=== PATIENT | male | born 1980 | race African-American/Black ===

== ENCOUNTER 2016-06-15 11:41 | Emergency (ER) | payer MEDICAID, OTHER ==
--- NOTE | 2016-06-15 12:46 | EDDOCDS ---
Physician Documentation [facility] Name: Ricardo Hannon Age: 35 yrs Sex: Male : 1980 Arrival Date: 06/15/2016 Time: 11:41 Bed TR8 Private MD: NO PRIMARY PHYSICIAN, . Disposition: 06/15/16 12:33 Discharged to Home/Self Care. Impression: Asthma, Mild intermittent asthma, uncomplicated. - Condition is Stable. - Discharge Instructions: Asthma, Adult, How to Use an Inhaler. - Prescriptions for spacer - as directed 1 tube by NEBULIZATION route as needed 1 spacer as needed; 1 tube. Albuterol Sulfate 1.25 mg/3 mL Inhalation Solution for Nebulization - inhale 1 ampule by NEBULIZATION route 4 times per day As needed; 1 box. - Medication Reconciliation, Local Pharmacy Hours form. - [facility] up[facility]; When: Call to arrange an appointment; Reason: Continuance of care. - Problem is an ongoing problem. - Symptoms are unchanged. Historical: - Allergies: no known allergies; - Home Meds: 1. Albuterol Inhl 2 puffs as needed (Last dose: 06/15/2016 09:00) - PMHx: Asthma; - PSHx: none; - Social history: Smoking status: Patient uses tobacco products, light tobacco smoker. No barriers to communication noted, The patient speaks fluent Setswana. - Family history: Not pertinent. - : The pt / caregiver states he / she is not on anticoagulants. Home medication list is obtained from the patient. - Exposure Risk Screening:: None identified. Vital Signs: 06/15 11:43 BP 112 / 75; Pulse 99; Resp 18 S; Temp 98.1(O); Pulse Ox 100% on R/A; Weight 56.7 kg / dd6 125 lbs (R); Height 6 ft. 0 in. (182.88 cm) (R); 11:43 Body Mass Index 16.95 (56.70 kg, 182.88 cm) dd6 Signatures: Bryan Sharp, ROBOTIC WELDER ROBOTIC WELDER Vannesa RodriguezRN RN rs3 Yamila Dahl RN RN jc4 MTDD
--- NOTE | 2016-06-15 12:46 | EDDOCDS ---
Nurse's Notes [facility] Name: Ricardo Hannon Age: 35 yrs Sex: Male : 1980 Arrival Date: 06/15/2016 Time: 11:41 Bed TR8 Private MD: NO PRIMARY PHYSICIAN, . Diagnosis: Asthma;Mild intermittent asthma, uncomplicated Presentation: 06/15 11:55 Presenting complaint: Patient states: "I've caught two asthma attacks in the past week. jc4 I've got the nebulizer machine but I don't have the medication or neb equipment". Adult Sepsis Screening: The patient does not have new or worsening altered mentation. Patient's respiratory rate is less than 22. Systolic blood pressure is greater than 100. Patient has a qSOFA score of 0- Negative Sepsis Screen. Suicide/Homicide risk assessment- the patient denies having any suicidal and/or homicidal ideations and does not present with any other emotional, behavioral or mental health complaints. Status: Patient is not a visitor services information assistant or dependent. Transition of care: patient was not received from another setting of care. 11:55 Acuity: GERRY Level 4 4 11:55 Method Of Arrival: Walkin/Carried/Asstd jc4 Triage Assessment: 11:57 General: Appears in no apparent distress. Pain: Denies pain. HIV screening NA for this jc4 visit Offered previously. Historical: - Allergies: no known allergies; - Home Meds: 1. Albuterol Inhl 2 puffs as needed (Last dose: 06/15/2016 09:00) - PMHx: Asthma; - PSHx: none; - Social history: Smoking status: Patient uses tobacco products, light tobacco smoker. No barriers to communication noted, The patient speaks fluent Ethiopian. - Family history: Not pertinent. - : The pt / caregiver states he / she is not on anticoagulants. Home medication list is obtained from the patient. - Exposure Risk Screening:: None identified. Screenin:43 Screening information is obtained from the patient. Fall risk: No risks identified. rs3 Assistance ADL's: requires no assistance with activities of daily living. Abuse/DV Screen: The patient / caregiver reports he/she is: not in a situation that causes fear, pain or injury. Nutritional screening: No deficits noted. Advance Directives: Currently, there is no health care proxy. There is no active DNR order. home support is adequate. Assessment: 12:43 General: Appears in no apparent distress, Behavior is appropriate for age, cooperative. rs3 Pain: Denies pain. Neurological: Level of Consciousness is awake, alert, Oriented to person, place, time. Cardiovascular: Capillary refill < 3 seconds Heart tones S1 S2 present. Respiratory: Airway is patent Respiratory effort is even, unlabored, Breath sounds are clear bilaterally. Derm: Skin is pink, warm & dry. Vital Signs: 11:43 BP 112 / 75; Pulse 99; Resp 18 S; Temp 98.1(O); Pulse Ox 100% on R/A; Weight 56.7 kg dd6 (R); Height 6 ft. 0 in. (182.88 cm) (R); 11:43 Body Mass Index 16.95 (56.70 kg, 182.88 cm) dd6 Vitals: 11:43 Log In Time: June 15, 2016 at 11:41. dd6 ED Course: 11:43 Patient visited by Dylan Montaño PCA. dd6 11:43 NO PRIMARY PHYSICIAN, . is Private Physician. dd6 11:43 Patient moved to Waiting dd6 11:44 Patient moved to Pre RCE dd6 11:56 Triage Initiated jc4 12:18 Patient moved to Triage 2 ar3 12:24 [facility] F[facility] ke 12:24 Patient visited by Brayn Sharp FNP. ke 12:25 Patient visited by Bryan Sharp FNP. ke 12:33 [facility] is Referral Physician. ke 12:42 Patient moved to TR8 rs3 12:44 The patient / caregiver is instructed regarding the plan of care and ED course. rs3 12:44 No IV's were initiated during this patient's visit. No procedures done that require rs3 assistance. Order Results: There are currently no results for this order. Outcome: 12:33 Discharge ordered by Provider. ke 12:44 Discharge Assessment: patient administered narcotics - no. The following High Risk rs3 Discharge criteria are identified: None. Discharged to home ambulatory. Condition: stable. Discharge instructions given to patient, Instructed on discharge instructions, follow up and referral plans. medication usage, Demonstrated understanding of instructions, medications, Pt was receptive of discharge instructions/ teaching. No special radiology studies were completed. Property :Personal belongings accompany Pt. 12:45 Patient left the ED. rs3 Signatures: Bryan Sharp, DIRECTOR OF HOME CARE HOSPICE DIRECTOR OF HOME CARE HOSPICE Dylan Naylor, RFID SYSTEMS ARCHITECT RFID SYSTEMS ARCHITECT dd6 Vannesa Valenzuela,RN RN rs3 Nicolle Mandel, RFID SYSTEMS ARCHITECT RFID SYSTEMS ARCHITECT ar3 Yamila Dahl RN RN jc4 MTDD
--- NOTE | 2016-06-17 13:46 | EDDOCDS ---
Physician Documentation [facility] Name: Ricardo Hannon Age: 35 yrs Sex: Male : 1980 Arrival Date: 06/15/2016 Time: 11:41 Bed TR8 Private MD: NO PRIMARY PHYSICIAN, . Disposition: 06/15/16 12:33 Discharged to Home/Self Care. Impression: Asthma, Mild intermittent asthma, uncomplicated. - Condition is Stable. - Discharge Instructions: Asthma, Adult, How to Use an Inhaler. - Prescriptions for spacer - as directed 1 tube by NEBULIZATION route as needed 1 spacer as needed; 1 tube. Albuterol Sulfate 1.25 mg/3 mL Inhalation Solution for Nebulization - inhale 1 ampule by NEBULIZATION route 4 times per day As needed; 1 box. - Medication Reconciliation, Local Pharmacy Hours form. - Follow up: [facility]; When: Call to arrange an appointment; Reason: Continuance of care. - Problem is an ongoing problem. - Symptoms are unchanged. Historical: - Allergies: no known allergies; - Home Meds: 1. Albuterol Inhl 2 puffs as needed (Last dose: 06/15/2016 09:00) - PMHx: Asthma; - PSHx: none; - Social history: Smoking status: Patient uses tobacco products, light tobacco smoker. No barriers to communication noted, The patient speaks fluent Setswana. - Family history: Not pertinent. - : The pt / caregiver states he / she is not on anticoagulants. Home medication list is obtained from the patient. - Exposure Risk Screening:: None identified. Vital Signs: 06/15 11:43 BP 112 / 75; Pulse 99; Resp 18 S; Temp 98.1(O); Pulse Ox 100% on R/A; Weight 56.7 kg / dd6 125 lbs (R); Height 6 ft. 0 in. (182.88 cm) (R); 11:43 Body Mass Index 16.95 (56.70 kg, 182.88 cm) dd6 MDM: 13:59 [facility] Payment Agreement was scanned into [employer] and attached to record. lg 06/16 02:24 T-Sheet-- Draft Copy was scanned into [employer] and attached to record. hs2 Signatures: Laurel Peralta, Jairo Reg lg ElsnerBryan FNP FNP ke Soosairaj, RosemaryRN RN rs3 Yamila Dahl RN RN jc4 Edyta Webber, Reg Reg hs2 The chart was reviewed and I authenticate all verbal orders and agree with the evaluation and treatment provided.Attachments: 06/15 13:59 [facility] Payment Agreement lg 06/16 02:24 T-Sheet-- Draft Copy hs2 Chart Complete MTDD
--- NOTE | 2016-06-17 13:46 | EDDOCDS ---
Physician Documentation [facility] Name: Ricardo Hannon Age: 35 yrs Sex: Male : 1980 Arrival Date: 06/15/2016 Time: 11:41 Bed TR8 Private MD: NO PRIMARY PHYSICIAN, . Disposition: 06/15/16 12:33 Discharged to Home/Self Care. Impression: Asthma, Mild intermittent asthma, uncomplicated. - Condition is Stable. - Discharge Instructions: Asthma, Adult, How to Use an Inhaler. - Prescriptions for spacer - as directed 1 tube by NEBULIZATION route as needed 1 spacer as needed; 1 tube. Albuterol Sulfate 1.25 mg/3 mL Inhalation Solution for Nebulization - inhale 1 ampule by NEBULIZATION route 4 times per day As needed; 1 box. - Medication Reconciliation, Local Pharmacy Hours form. - Follow up: [facility]; When: Call to arrange an appointment; Reason: Continuance of care. - Problem is an ongoing problem. - Symptoms are unchanged. Historical: - Allergies: no known allergies; - Home Meds: 1. Albuterol Inhl 2 puffs as needed (Last dose: 06/15/2016 09:00) - PMHx: Asthma; - PSHx: none; - Social history: Smoking status: Patient uses tobacco products, light tobacco smoker. No barriers to communication noted, The patient speaks fluent Occitan. - Family history: Not pertinent. - : The pt / caregiver states he / she is not on anticoagulants. Home medication list is obtained from the patient. - Exposure Risk Screening:: None identified. Vital Signs: 06/15 11:43 BP 112 / 75; Pulse 99; Resp 18 S; Temp 98.1(O); Pulse Ox 100% on R/A; Weight 56.7 kg / dd6 125 lbs (R); Height 6 ft. 0 in. (182.88 cm) (R); 11:43 Body Mass Index 16.95 (56.70 kg, 182.88 cm) dd6 MDM: 13:59 [facility] Payment Agreement was scanned into [employer] and attached to record. lg 06/16 02:24 T-Sheet-- Draft Copy was scanned into [employer] and attached to record. hs2 Signatures: Laurel Peralta, Jairo Reg lg ElsnerBryan FNP FNP ke Soosairaj, RosemaryRN RN rs3 Yamila Dahl RN RN jc4 Edyta Webber, Reg Reg hs2 The chart was reviewed and I authenticate all verbal orders and agree with the evaluation and treatment provided.Attachments: 06/15 13:59 [facility] Payment Agreement lg 06/16 02:24 T-Sheet-- Draft Copy hs2 Chart Complete MTDD
--- NOTE | 2016-06-17 13:46 | EDDOCDS ---
Nurse's Notes [facility] Name: Ricardo Hannon Age: 35 yrs Sex: Male : 1980 Arrival Date: 06/15/2016 Time: 11:41 Bed TR8 Private MD: NO PRIMARY PHYSICIAN, . Diagnosis: Asthma;Mild intermittent asthma, uncomplicated Presentation: 06/15 11:55 Presenting complaint: Patient states: "I've caught two asthma attacks in the past week. jc4 I've got the nebulizer machine but I don't have the medication or neb equipment". Adult Sepsis Screening: The patient does not have new or worsening altered mentation. Patient's respiratory rate is less than 22. Systolic blood pressure is greater than 100. Patient has a qSOFA score of 0- Negative Sepsis Screen. Suicide/Homicide risk assessment- the patient denies having any suicidal and/or homicidal ideations and does not present with any other emotional, behavioral or mental health complaints. Status: Patient is not a social service coordinator or dependent. Transition of care: patient was not received from another setting of care. 11:55 Acuity: GERRY Level 4 4 11:55 Method Of Arrival: Walkin/Carried/Asstd jc4 Triage Assessment: 11:57 General: Appears in no apparent distress. Pain: Denies pain. HIV screening NA for this jc4 visit Offered previously. Historical: - Allergies: no known allergies; - Home Meds: 1. Albuterol Inhl 2 puffs as needed (Last dose: 06/15/2016 09:00) - PMHx: Asthma; - PSHx: none; - Social history: Smoking status: Patient uses tobacco products, light tobacco smoker. No barriers to communication noted, The patient speaks fluent Divehi. - Family history: Not pertinent. - : The pt / caregiver states he / she is not on anticoagulants. Home medication list is obtained from the patient. - Exposure Risk Screening:: None identified. Screenin:43 Screening information is obtained from the patient. Fall risk: No risks identified. rs3 Assistance ADL's: requires no assistance with activities of daily living. Abuse/DV Screen: The patient / caregiver reports he/she is: not in a situation that causes fear, pain or injury. Nutritional screening: No deficits noted. Advance Directives: Currently, there is no health care proxy. There is no active DNR order. home support is adequate. Assessment: 12:43 General: Appears in no apparent distress, Behavior is appropriate for age, cooperative. rs3 Pain: Denies pain. Neurological: Level of Consciousness is awake, alert, Oriented to person, place, time. Cardiovascular: Capillary refill < 3 seconds Heart tones S1 S2 present. Respiratory: Airway is patent Respiratory effort is even, unlabored, Breath sounds are clear bilaterally. Derm: Skin is pink, warm & dry. Vital Signs: 11:43 BP 112 / 75; Pulse 99; Resp 18 S; Temp 98.1(O); Pulse Ox 100% on R/A; Weight 56.7 kg dd6 (R); Height 6 ft. 0 in. (182.88 cm) (R); 11:43 Body Mass Index 16.95 (56.70 kg, 182.88 cm) dd6 Vitals: 11:43 Log In Time: June 15, 2016 at 11:41. dd6 ED Course: 11:43 Patient visited by Dylan Montaño PCA. dd6 11:43 NO PRIMARY PHYSICIAN, . is Private Physician. dd6 11:43 Patient moved to Waiting dd6 11:44 Patient moved to Pre RCE dd6 11:56 Triage Initiated jc4 12:18 Patient moved to Triage 2 ar3 12:24 [facility] ke 12:24 Patient visited by Bryan Sharp FNP. ke 12:25 Patient visited by Bryan Sharp FNP. ke 12:33 [facility] is Referral Physician. ke 12:42 Patient moved to TR8 rs3 12:44 The patient / caregiver is instructed regarding the plan of care and ED course. rs3 12:44 No IV's were initiated during this patient's visit. No procedures done that require rs3 assistance. 13:59 [facility] Payment Agreement was scanned into [employer] and attached to record. 06/16 02:24 T-Sheet-- Draft Copy was scanned into [employer] and attached to record. hs2 Order Results: There are currently no results for this order. Outcome: 06/15 12:33 Discharge ordered by Provider. ke 12:44 Discharge Assessment: patient administered narcotics - no. The following High Risk rs3 Discharge criteria are identified: None. Discharged to home ambulatory. Condition: stable. Discharge instructions given to patient, Instructed on discharge instructions, follow up and referral plans. medication usage, Demonstrated understanding of instructions, medications, Pt was receptive of discharge instructions/ teaching. No special radiology studies were completed. Property :Personal belongings accompany Pt. 12:45 Patient left the ED. rs3 Signatures: Laurel Peralta, Reg Reg lg Bryan Sharp, STUDENT SERVICES DEAN STUDENT SERVICES DEAN ke Dylan Montaño, CASH APPLICATIONS REPRESENTATIVE CASH APPLICATIONS REPRESENTATIVE dd6 Vannesa ValenzuelaRN RN rs3 Nicolle Mandel, CASH APPLICATIONS REPRESENTATIVE CASH APPLICATIONS REPRESENTATIVE ar3 Yamila Dahl RN RN jc4 Edyta Webber, Reg Reg hs2 Chart Complete MTDD
== END 2016-06-15 12:45 | disposition home or self-care (01) ==
LOC: M ED 11:41
DX: Z76.0 Encounter for issue of repeat prescription (principal); J45.909 Unspecified asthma, uncomplicated; F17.210 Nicotine dependence, cigarettes, uncomplicated; Z92.240 Personal history of inhaled steroid therapy

== ENCOUNTER → 2019-03-31 | Outpatient (CLI) | payer OTHER ==
[2019-03-31 14:10] LABS: HEMATOCRIT 43.7 % (42.0-52.0); HEMOGLOBIN 14.9 g/dl (13.5-17.5); MEAN CORPUSCULAR HEMOGLOBIN 30.6 pg (27.0-33.0); MEAN CORPUSCULAR HGB CONC 34.1 g/dl (32.0-36.5); MEAN CORPUSCULAR VOLUME 89.7 fl (80.0-96.0); PLATELET COUNT, AUTOMATED 316 10^3/uL (150-450); RED BLOOD COUNT 4.87 10^6/uL (4.30-6.10); WHITE BLOOD COUNT 5.9 10^3/uL (4.0-10.0)
--- NOTE | 2019-03-31 14:29 | ECGEPIP ---
[facility] Test Date: 2019-03-31 Pat Name: JARED CRISTINA Department: Room: - Gender: Male [employer]ber [employer] Maker: [facility] : 1980 Requested By: Andrei Torres Order Number: [id number] Reading MD: Sergo Polk Measurements Intervals [place] Rate: 64 P: 65 KS: 159 QRS: 49 QRSD: 106 T: 70 QT: 355 QTc: 368 Interpretive Statements SINUS RHYTHM INCOMPLETE RIGHT BUNDLE BRANCH BLOCK EARLY REPOLARIZATION Not definitely outside normal limits for age Electronically Signed on 03-31-2019 14:29:28 EDT by Sergo Polk
[2019-03-31 14:39] LABS: ALT/SGPT 31 U/L (12-78); BILIRUBIN,TOTAL 0.3 MG/DL (0.2-1.0); BLOOD UREA NITROGEN 9 MG/DL (7-18); CALCIUM LEVEL 9.3 MG/DL (8.5-10.1); CARBON DIOXIDE LEVEL 29 MEQ/L (21-32); CHLORIDE LEVEL 105 MEQ/L (98-107); CREATININE FOR GFR 0.96 MG/DL (0.70-1.30); GLOMERULAR FILTRATION RATE > 60.0 (>60); GLUCOSE, FASTING 82 MG/DL (70-100); POTASSIUM SERUM 4.2 MEQ/L (3.5-5.1); SODIUM LEVEL 139 MEQ/L (136-145); TOTAL PROTEIN 7.5 GM/DL (6.4-8.2)
[2019-03-31 15:00] LABS: HEPATITIS B SURFACE ANTIGEN NEGATIVE (NEGATIVE)
[2019-03-31 15:28] LABS: HIV 1&2 SCREEN CENTAUR NEGATIVE (NEGATIVE)
[2019-03-31 15:34] LABS: HEPATITIS C VIRUS ABY INDEX > 11.0 INDEX (<0.8)
[2019-03-31 16:34] LABS: CHLAMYDIA DNA AMPLIFICATION NEGATIVE (NEGATIVE); GC DNA AMPLIFICATION NEGATIVE (NEGATIVE)
== END ==
LOC: M LAB 13:23
PROVIDERS: ATTEND Family Medicine
DX: F11.20 Opioid dependence, uncomplicated (principal)

== ENCOUNTER 2019-04-14 16:06 | Emergency (ER) | payer OTHER ==
[~2019-04-14] VITALS: Ht 182.9 cm; Wt 63.6 kg
[2019-04-14 16:07] VITALS: BP 115/67
[2019-04-14] MEDS ORDERED: METH5TA PO (16:17)
[2019-04-14] MEDS ORDERED: GI COCKTAIL 50ML BTL(HYOSCYAMINE/MAALOX/LIDOCAINE VISCOUS)(1:3:1) PO ONE (16:30)
[2019-04-14] MEDS ORDERED: PANTOPRAZOLE 40MG TAB (PROTONIX) PO ONE (16:30)
[2019-04-14] MEDS ORDERED: PROT1TAB2 PO (16:39)
== END 2019-04-14 17:05 | disposition home or self-care (01) ==
LOC: M ED 16:06
DX: K21.9 Gastro-esophageal reflux disease without esophagitis (principal); R06.6 Hiccough

== ENCOUNTER → 2019-07-14 | Outpatient (REF) | payer OTHER, MEDICAID ==
[~2019-07-14] MED LIST: METH5TA PO; PROT1TAB2 PO
[2019-07-14 16:58] LABS: BASO # 0.1 10^3/uL (0.0-0.2); BASO % 0.8 % (0.0-1.0); EOS # 0.4 10^3/uL (0.0-0.5); EOS % 6.5 % (0.0-3.0); LYMPH # 4.1 10^3/uL (1.5-5.0); LYMPH % 62.6 % (24.0-44.0); MEAN CORPUSCULAR HEMOGLOBIN 29.2 pg (27.0-33.0); MEAN CORPUSCULAR HGB CONC 31.9 g/dl (32.0-36.5); MEAN CORPUSCULAR VOLUME 91.4 fl (80.0-96.0); MONO # 0.5 10^3/uL (0.0-0.8); MONO % 8.1 % (0.0-5.0); NEUTROPHILS # 1.4 10^3/uL (1.5-8.5); NEUTROPHILS % 21.8 % (36.0-66.0); PLATELET COUNT, AUTOMATED 270 10^3/uL (150-450); RED BLOOD COUNT 5.14 10^6/uL (4.30-6.10); WHITE BLOOD COUNT 6.6 10^3/uL (4.0-10.0)
[2019-07-14 17:11] LABS: ALBUMIN 3.8 GM/DL (3.2-5.2); ALT/SGPT 50 U/L (12-78); BILIRUBIN,TOTAL 0.3 MG/DL (0.2-1.0); BLOOD UREA NITROGEN 10 MG/DL (7-18); CALCIUM LEVEL 8.9 MG/DL (8.5-10.1); CARBON DIOXIDE LEVEL 27 MEQ/L (21-32); CHLORIDE LEVEL 107 MEQ/L (98-107); CHOLESTEROL LEVEL 180 MG/DL (<200); CHOLESTEROL RISK RATIO 2.117 (<5); CREATININE FOR GFR 0.88 MG/DL (0.70-1.30); FREE T4 1.18 NG/DL (0.76-1.46); GLOMERULAR FILTRATION RATE > 60.0 (>60); GLUCOSE, FASTING 128 MG/DL (70-100); HDL CHOLESTEROL 85 MG/DL (>40); LDL CHOLESTEROL 77 MG/DL (<100); NON-HDL-C 95 MG/DL; POTASSIUM SERUM 4.2 MEQ/L (3.5-5.1); SODIUM LEVEL 139 MEQ/L (136-145); THYROID STIMULATING HORMONE 0.591 uIU/ML (0.358-3.740); TOTAL PROTEIN 7.2 GM/DL (6.4-8.2); TRIGLYCERIDES LEVEL 92 MG/DL (<150)
[2019-07-14 17:12] LABS: TOTAL 25(OH) VITAMIN D 15.1 NG/ML (30.0-100.0)
== END ==
LOC: M LAB REF 16:12
PROVIDERS: ATTEND Nurse Practitioner Family
DX: Z00.01 Encounter for general adult medical examination with abnormal findings (principal)

== ENCOUNTER 2019-07-31 10:45 | Emergency (ER) | payer MEDICAID, OTHER ==
[~2019-07-31] VITALS: Ht 182.9 cm; Wt 63.6 kg
[2019-07-31 12:05] LABS: BASO % 0.6 % (0.0-1.0); EOS # 0.4 10^3/uL (0.0-0.5); EOS % 5.7 % (0.0-3.0); HEMATOCRIT 41.6 % (42.0-52.0); HEMOGLOBIN 14.3 g/dl (13.5-17.5); LYMPH % 43.3 % (24.0-44.0); MEAN CORPUSCULAR HEMOGLOBIN 30.6 pg (27.0-33.0); MEAN CORPUSCULAR HGB CONC 34.4 g/dl (32.0-36.5); MEAN CORPUSCULAR VOLUME 88.9 fl (80.0-96.0); MONO # 0.5 10^3/uL (0.0-0.8); MONO % 7.9 % (0.0-5.0); NEUTROPHILS # 2.9 10^3/uL (1.5-8.5); NEUTROPHILS % 42.4 % (36.0-66.0); PLATELET COUNT, AUTOMATED 279 10^3/uL (150-450); RED BLOOD COUNT 4.68 10^6/uL (4.30-6.10); WHITE BLOOD COUNT 6.8 10^3/uL (4.0-10.0)
[2019-07-31 12:17] LABS: PARTIAL THROMBOPLASTIN TIME 29.6 SECONDS (25.0-38.4)
[2019-07-31 12:29] LABS: BLOOD UREA NITROGEN 10 MG/DL (7-18); CALCIUM LEVEL 9.1 MG/DL (8.5-10.1); CARBON DIOXIDE LEVEL 29 MEQ/L (21-32); CHLORIDE LEVEL 106 MEQ/L (98-107); CK-MB VALUE MASS 1.6 NG/ML (<3.6); CPK CREATINE PHOSPHOKINASE 265 U/L (39-308); CREATININE FOR GFR 0.84 MG/DL (0.70-1.30); GLOMERULAR FILTRATION RATE > 60.0 (>60); GLUCOSE, FASTING 95 MG/DL (70-100); POTASSIUM SERUM 3.9 MEQ/L (3.5-5.1); SODIUM LEVEL 139 MEQ/L (136-145); TROPONIN I < 0.02 NG/ML (< 0.10)
[2019-07-31 13:15] LABS: ALT/SGPT 43 U/L (12-78); BILIRUBIN,DIRECT 0.1 MG/DL (0.0-0.2); BILIRUBIN,TOTAL 0.2 MG/DL (0.2-1.0); TOTAL PROTEIN 7.1 GM/DL (6.4-8.2)
[2019-07-31 13:19] LABS: PROTHROMBIN TIME 12.9 SECONDS (11.8-14.0)
[2019-07-31 13:22] LABS: D-DIMER QUANT 499.2 ng/ml (<500)
--- NOTE | 2019-07-31 13:34 | REP ---
CHEST: Two views. There is no evidence of acute infiltrate. No pleural effusion is seen. The heart is normal in size. The mediastinal silhouette is unremarkable. The visualized osseous structures are intact. IMPRESSION: No acute pulmonary disease. Electronically Signed by Andrei Watts MD 07/31/2019 04:01 P
[2019-07-31 13:49] VITALS: BP 96/55
--- NOTE | 2019-07-31 21:36 | ECGEPIP ---
[facility] - ED Test Date: 2019-07-31 Pat Name: JARED CRISTINA Department: Room: - Gender: Male Mobile Nurse: : 1980 Requested By: JEFF Liu Order Number: [id number] Reading MD: Jackelyn Jacobson Measurements Intervals [place] Rate: 59 P: 50 ID: [id number] QRS: 29 QRSD: 103 T: 61 QT: 368 QTc: 367 Interpretive Statements SINUS BRADYCARDIA POSSIBLE RIGHT VENTRICULAR CONDUCTION DELAY EARLY REPOLARIZATION SIMILAR 03/31/19 Electronically Signed on 07-31-2019 21:35:59 EST by Jackelyn Jacobson
== END 2019-07-31 13:50 | disposition home or self-care (01) ==
LOC: M ED 10:45
DX: R07.89 Other chest pain (principal); R00.1 Bradycardia, unspecified; I45.10 Unspecified right bundle-branch block; J45.909 Unspecified asthma, uncomplicated; G43.909 Migraine, unspecified, not intractable, without status migrainosus; F17.210 Nicotine dependence, cigarettes, uncomplicated

== ENCOUNTER 2019-12-12 15:19 | Inpatient (IN) | payer MEDICAID, OTHER ==
[~2019-12-12] VITALS: Ht 182.9 cm; Wt 63.6 kg
[2019-12-12 16:06] LABS: HEMATOCRIT 44.2 % (42.0-52.0); HEMOGLOBIN 14.8 g/dl (13.5-17.5); MEAN CORPUSCULAR HEMOGLOBIN 29.8 pg (27.0-33.0); MEAN CORPUSCULAR HGB CONC 33.5 g/dl (32.0-36.5); MEAN CORPUSCULAR VOLUME 89.1 fl (80.0-96.0); PLATELET COUNT, AUTOMATED 335 10^3/uL (150-450); RED BLOOD COUNT 4.96 10^6/uL (4.30-6.10); WHITE BLOOD COUNT 5.7 10^3/uL (4.0-10.0)
[2019-12-12 16:34] LABS: AMPHETAMINES LEVEL URINE NEGATIVE (NEGATIVE); BARBITURATES URINE NEGATIVE (NEGATIVE); BENZODIAZEPINES URINE NEGATIVE (NEGATIVE); CANNABINOIDS URINE NEGATIVE (NEGATIVE); COCAINE METABOLITE URINE NEGATIVE (NEGATIVE); METHADONE URINE NEGATIVE (NEGATIVE); OPIATES URINE POSITIVE (NEGATIVE); PHENCYCLIDINE URINE NEGATIVE (NEGATIVE)
[2019-12-12 16:42] LABS: ACETAMINOPHEN LEVEL < 2.0 UG/ML (10.0-30.0); ALBUMIN 4.2 GM/DL (3.2-5.2); ALT/SGPT 31 U/L (12-78); BILIRUBIN,DIRECT 0.2 MG/DL (0.0-0.2); BILIRUBIN,TOTAL 0.4 MG/DL (0.2-1.0); BLOOD UREA NITROGEN 8 MG/DL (7-18); CALCIUM LEVEL 9.6 MG/DL (8.5-10.1); CARBON DIOXIDE LEVEL 35 MEQ/L (21-32); CHLORIDE LEVEL 102 MEQ/L (98-107); CREATININE FOR GFR 1.02 MG/DL (0.70-1.30); ETHYL ALCOHOL (ETHANOL) < 0.003 % (0.000-0.010); GLOMERULAR FILTRATION RATE > 60.0 (>60); GLUCOSE, FASTING 99 MG/DL (70-100); POTASSIUM SERUM 3.6 MEQ/L (3.5-5.1); SALICYLATE LEVEL 1.8 MG/DL (5.0-30.0); SODIUM LEVEL 142 MEQ/L (136-145); THYROID STIMULATING HORMONE 0.345 uIU/ML (0.358-3.740); TOTAL PROTEIN 8.1 GM/DL (6.4-8.2)
[2019-12-12] MEDS ORDERED: SUBO8MIS SL ×2 (20:38)
[2019-12-12] MEDS ORDERED: LEXA5TAB13 PO (20:38)
[2019-12-12] MEDS ORDERED: TRAZ-252 PO (20:38)
[2019-12-13] MEDS ORDERED: traZODone 50 MG TAB PO PRN (00:15)
[2019-12-13] MEDS ORDERED: ACETAMINOPHEN TAB 650MG DOSE (2X325MG) PO PRN (00:15)
[2019-12-13] MEDS ORDERED: MAALOX 30 ML SUSP *UDC PO PRN (00:15)
[2019-12-13] MEDS ORDERED: OLANZapine ORAL DISINTEGRATING TAB 5MG PO PRN (00:15)
[2019-12-13] MEDS ORDERED: MOM 30ML SUSPENSION UDC PO PRN (00:15)
[2019-12-13 02:34] VITALS: BP 110/56
[2019-12-13] MEDS ORDERED: NICOTINE 21MG/24HR 1 EA TRANSDERMAL TD SCH (09:00)
--- NOTE | 2019-12-13 09:37 | MHHPEPDOC ---
[facility] History & Physical History and Physical DATE OF ADMISSION: Dec 13, 2019 at 00:08 Ricardo presents today for concerns regarding paranoia regarding police and federal agents coming after him. He believes the police are always watching him but denies any voices that talk to him or manic episodes. 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 He screens negative for MDD at this time, reports some history of depression MEDICATIONS: Currently taking Lexapro and Suboxone, no IP stays or SA in the past. Dx of depression tx at [facility]. FAMILY HISTORY: He denies any family history of mental issues. Sochx: uses marcello, hx of opioid use, lives alone. Objective Appearance: Well nourished. Well groomed. Behavior: Pleasant. Cooperative with good eye contact. Engaged. Affect: Full range. Appropriate to context. Mood: Appropriately reactive. Generally good. Euthymic. Speech: Normal volume. Normal rate. Motor: No gross motor abnormalities. Cognition: Alert, Attentive, and Oriented to person, place, time. Memory: No formal testing. No gross abnormalities of short or residential memory noted during interview. Thought Form: Linear and goal directed. Thought Content: No evidence of delusions. No evidence of suicidal ideation. No thoughts of self harm. No evidence of aggressive or homicidal ideation. Perception: No perceptual abnormalities noted. Judgement: intact as evidenced by decision making in the recent past. Insight: good insight into symptoms and treatment options. 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 Patients length of stay will be one day. Treatment priorities are altered thoughts, which have resolved at this time. The patient at the time of discharge did not meet criteria for involuntary admission/extension due to having a normal mental status exam, fair insight into the situation, They are engaged in the discharge process, as well as being friendly and amenable in behavioral control and havent been engaging in any observed concerning behavior or ideation recently. They decline voluntary e xtension/admission at this time and must be discharged in good sera, as Im unable to make a case for holding the patient against their will. They may have historical risk factors of admissions and other interactions with psychiatry however, those are not modifiable from a clinical perspective. The patient will need to be discharged in good sera. Vital Signs Vital Signs Date Time Temp Pulse Resp B/P (MAP) Pulse Ox O2 Delivery O2 Flow Rate FiO2 12/13/19 02:34 98.0 73 16 110/56 (74) 99 Room Air Laboratory Data 24H Labs Laboratory Tests 2 12/12/19 15:54: Nucleated Red Blood Cells % (auto) 0.0, Anion Gap 5L, Glomerular Filtration Rate > 60.0, Calcium Level 9.6, Total Bilirubin 0.4, Direct Bilirubin 0.2, Aspartate Amino Transf (AST/SGOT) 30, Alanine Aminotransferase (ALT/SGPT) 31, Alkaline Phosphatase 79, Total Protein 8.1, Albumin 4.2, Albumin/Globulin Ratio 1.1, Thyroid Stimulating Hormone (TSH) 0.345L, Salicylates Level 1.8L, Urine Opiates Screen POSITIVEH, Urine Methadone Screen NEGATIVE, Acetaminophen Level < 2.0L, Urine Barbiturates Screen NEGATIVE, Urine Phencyclidine Screen NEGATIVE, Urine Amphetamines Screen NEGATIVE, Urine Benzodiazepines Screen NEGATIVE, Urine Cocaine Metabolite Screen NEGATIVE, Urine Cannabinoids Screen NEGATIVE, Ethyl Alcohol Level < 0.003 CBC/BMP Laboratory Tests 12/12/19 15:54 Medications Scheduled Buprenorphine HCl/Naloxone HCl (Suboxone 8 mg-2 mg Sl Film) 1 Each Film, 1.5 STRIP SL DAILY, (Reported) Buprenorphine HCl/Naloxone HCl (Suboxone 8 mg-2 mg Sl Film) 1 Each Film, 1 STRIP SL QHS, (Reported) Escitalopram Oxalate (Lexapro) 5 Mg Tablet, 5 MG PO QHS, (Reported) Nicotine (Nicotine Patch) 21 Mg Patch.td24, 1 PATCH TD DAILY for tobacco Trazodone HCl (Trazodone HCl) 50 Mg Tablet, 50 MG PO QHS, (Reported) Allergies Coded Allergies: No Known Allergies (Unverified , 04/14/19) JOSEY RODNEY DO Dec 13, 2019 09:37
[2019-12-13] MEDS ORDERED: NICO21PAT TD (11:10)
--- NOTE | 2019-12-13 11:15 | MHDSPDOC ---
[facility] Discharge Summary Discharge Summary DATE OF ADMISSION: Dec 13, 2019 at 00:08 DATE OF DISCHARGE: Dec 13, 2019 at 12:55 please see h/p for same day d/c Vital Signs/I&Os Vital Signs Date Time Temp Pulse Resp B/P (MAP) Pulse Ox O2 Delivery O2 Flow Rate FiO2 12/13/19 02:34 98.0 73 16 110/56 (74) 99 Room Air Laboratory Data Labs 24H Laboratory Tests 2 12/12/19 15:54: Nucleated Red Blood Cells % (auto) 0.0, Anion Gap 5L, Glomerular Filtration Rate > 60.0, Calcium Level 9.6, Total Bilirubin 0.4, Direct Bilirubin 0.2, Aspartate Amino Transf (AST/SGOT) 30, Alanine Aminotransferase (ALT/SGPT) 31, Alkaline Phosphatase 79, Total Protein 8.1, Albumin 4.2, Albumin/Globulin Ratio 1.1, Thyroid Stimulating Hormone (TSH) 0.345L, Salicylates Level 1.8L, Urine Opiates Screen POSITIVEH, Urine Methadone Screen NEGATIVE, Acetaminophen Level < 2.0L, Urine Barbiturates Screen NEGATIVE, Urine Phencyclidine Screen NEGATIVE, Urine Amphetamines Screen NEGATIVE, Urine Benzodiazepines Screen NEGATIVE, Urine Cocaine Metabolite Screen NEGATIVE, Urine Cannabinoids Screen NEGATIVE, Ethyl Alcohol Level < 0.003 CBC/BMP Laboratory Tests 12/12/19 15:54 Medications Scheduled Buprenorphine HCl/Naloxone HCl (Suboxone 8 mg-2 mg Sl Film) 1 Each Film, 1.5 STRIP SL DAILY, (Reported) Buprenorphine HCl/Naloxone HCl (Suboxone 8 mg-2 mg Sl Film) 1 Each Film, 1 STRIP SL QHS, (Reported) Escitalopram Oxalate (Lexapro) 5 Mg Tablet, 5 MG PO QHS, (Reported) Nicotine (Nicotine Patch) 21 Mg Patch.td24, 1 PATCH TD DAILY for tobacco for 30 Days, #30 Trazodone HCl (Trazodone HCl) 50 Mg Tablet, 50 MG PO QHS, (Reported) Allergies Coded Allergies: No Known Allergies (Unverified , 04/14/19) JOSEY RODNEY DO Dec 13, 2019 11:15
== END 2019-12-13 12:55 | disposition home or self-care (01) | DRG 773 ==
LOC: M ED 15:19 → M ED INP 12-13 00:08 → M PSY 12-13 01:54
PROVIDERS: ADMIT Psychiatry & Neurology Psychiatry; ATTEND Psychiatry & Neurology Addiction Medicine
DX: F19.150 Other psychoactive substance abuse with psychoactive substance-induced psychotic disorder with delusions (principal); F33.9 Major depressive disorder, recurrent, unspecified; F11.90 Opioid use, unspecified, uncomplicated; Z79.899 Other long term (current) drug therapy

== ENCOUNTER 2020-11-18 07:01 | Emergency (ER) | payer MEDICAID, OTHER, SELFPAY ==
[~2020-11-18] VITALS: Ht 180.3 cm; Wt 66.3 kg
[~2020-11-18 07:01] MED LIST changes: +LEXA5TAB13 PO; +NICO21PAT TD; +SUBO8MIS SL; +TRAZ-252 PO
[2020-11-18] MEDS ORDERED: ALBUTEROL 90 MCG/ACT 8GM HFA INHALER INH ONE (07:35)
[2020-11-18] MEDS ORDERED: GI COCKTAIL 50ML BTL(HYOSCYAMINE/MAALOX/LIDOCAINE VISCOUS)(1:3:1) PO ONE (07:35)
[2020-11-18] MEDS ORDERED: OMEP-218 PO (08:38)
[2020-11-18] MEDS ORDERED: VENTAER INH (08:38)
[2020-11-18 08:51] VITALS: BP 107/77
[2021-06-17] MEDS ORDERED: PANT40TA29 (16:48)
[2021-06-17] MEDS ORDERED: SUCR1TAB56 (16:48)
[2021-06-17] MEDS ORDERED: ONDA4TAB6 (16:48)
[2021-06-17] MEDS ORDERED: MIRA3350 PO (21:47)
[2021-06-17] MEDS ORDERED: FAMO10TA50 PO (21:47)
[2021-06-17] MEDS ORDERED: CARA1TAB6 PO (21:47)
== END 2020-11-18 08:53 | disposition home or self-care (01) ==
LOC: M ED 07:01
DX: J45.909 Unspecified asthma, uncomplicated (principal); K21.9 Gastro-esophageal reflux disease without esophagitis; R06.6 Hiccough; F33.9 Major depressive disorder, recurrent, unspecified; F41.9 Anxiety disorder, unspecified; F17.210 Nicotine dependence, cigarettes, uncomplicated; Z79.899 Other long term (current) drug therapy

== ENCOUNTER 2021-02-02 09:36 | Inpatient (IN) | payer MEDICAID, OTHER, SELFPAY ==
[~2021-02-02] VITALS: Ht 182.9 cm; Wt 55.8 kg
[~2021-02-02 09:36] MED LIST changes: +OMEP-218 PO; +VENTAER INH
[2021-02-02 10:54] LABS: BASO % 0.4 % (0.0-1.0); EOS % 0.1 % (0.0-3.0); HEMATOCRIT 49.7 % (42.0-52.0); HEMOGLOBIN 17.7 g/dl (13.5-17.5); LYMPH # 2.8 10^3/uL (1.5-5.0); LYMPH % 31.1 % (24.0-44.0); MEAN CORPUSCULAR HEMOGLOBIN 29.5 pg (27.0-33.0); MEAN CORPUSCULAR HGB CONC 35.6 g/dl (32.0-36.5); MEAN CORPUSCULAR VOLUME 82.8 fl (80.0-96.0); MONO # 1.4 10^3/uL (0.0-0.8); MONO % 15.7 % (2.0-8.0); NEUTROPHILS # 4.8 10^3/uL (1.5-8.5); NEUTROPHILS % 52.3 % (36.0-66.0); PLATELET COUNT, AUTOMATED 344 10^3/uL (150-450); WHITE BLOOD COUNT 9.1 10^3/uL (4.0-10.0)
[2021-02-02] MEDS ORDERED: NS 1,000 ML IV ONE ×2 (11:20)
[2021-02-02] MEDS ORDERED: KETOROLAC 30 MG/ML 1ML VIAL IV ONE (11:20)
[2021-02-02] MEDS ORDERED: ONDANSETRON 4MG/2ML VIAL IV ONE (11:20)
[2021-02-02 11:26] LABS: ALBUMIN 4.9 GM/DL (3.2-5.2); BILIRUBIN,TOTAL 2.1 MG/DL (0.2-1.0); CREATININE FOR GFR 2.44 MG/DL (0.70-1.30); GLOMERULAR FILTRATION RATE 38.3 (>60); TOTAL PROTEIN 9.6 GM/DL (6.4-8.2)
[2021-02-02] MEDS ORDERED: POTASSIUM CHLORIDE 10 MEQ SR TABLET PO ONE (11:50)
[2021-02-02] MEDS ORDERED: ALBU8.5H INH (12:22)
[2021-02-02 12:25] LABS: RSV AMPLIFICATION NEGATIVE (NEGATIVE)
[2021-02-02] MEDS ORDERED: HOME MED LIST COMPLETE! XX SCH (12:25)
--- NOTE | 2021-02-02 12:55 | REP ---
INDICATION: elevated bili, 5 days of vomiting COMPARISON: None. TECHNIQUE: Real time avila scale ultrasound examination using curved array transducer. FINDINGS: Liver is normal in contour, size, and echogenicity without focal hepatic lesions identified. Pancreas is incompletely evaluated due to interposed bowel gas. The gallbladder demonstrates small amount of layering sludge without wall thickening or pericholecystic fluid. The common bile duct is minimally dilated at 7.7 mm. Right kidney is normal in reniform shape without hydronephrosis and measures 9.7 x 5.2 x 4.4 cm. No ascites in the visualized right upper quadrant. IMPRESSION: Small amount of layering sludge in the gallbladder and minimally dilated common bile duct. No evidence for acute cholecystitis by ultrasound evaluation. <Electronically signed by Omega Uriostegui > 02/02/21 [id number]
[2021-02-02] MEDS ORDERED: METOCLOPRAMIDE INJ 10MG/2ML VIAL (J2765 PER 1) IV ONE (13:00)
[2021-02-02 13:10] LABS: APPEARANCE, URINE HAZY (CLEAR); BACTERIA, URINE AUTO NEGATIVE (NEGATIVE); BILIRUBIN, URINE AUTO NEGATIVE (NEGATIVE); BLOOD, URINE BLOOD NEGATIVE (NEGATIVE); COLOR, URINE AMBER (YELLOW); GLUCOSE, URINE (UA) AUTO NEGATIVE (NEGATIVE); KETONE, URINE AUTO 1+ mg/dL (NEGATIVE); LEUKOCYTE ESTERASE, URINE AUTO NEGATIVE (NEGATIVE); NITRITE, URINE AUTO NEGATIVE (NEGATIVE); PROTEIN, URINE AUTO 1+ mg/dL (NEGATIVE); RBC, URINE AUTO 0 /HPF (0-3); SPECIFIC GRAVITY URINE AUTO 1.023 (1.002-1.035); SQUAMOUS EPITHELIAL CELL UR AU 0 /HPF (0-6); WBC, URINE AUTO 0 /HPF (0-3)
[2021-02-02] MEDS ORDERED: ONDANSETRON 4MG/2ML VIAL IV SCH (13:10)
[2021-02-02] MEDS ORDERED: PROCHLORPERAZINE 10MG/2ML VIAL (J0780 PER 1) IV PRN (13:10)
[2021-02-02] MEDS: D5W/0.9% SODIUM CHLORIDE 1,000 ML IV SCH ×2 (13:38→21:49)
[2021-02-02] MEDS ORDERED: PANTOPRAZOLE 40MG VIAL (C9113 PER 1) IV SCH (15:00)
--- NOTE | 2021-02-02 16:18 | HPEPDOC ---
General Date of Admission Feb 02, 2021 at 13:10 Date of Service: Feb 02, 2021 Chief Complaint The patient is a 40-year-old male admitted with a reason for visit of Acute Kidney Injury Nausea Vomiting. Source: Patient, RN/MD History of Present Illness 40-year-old male who is from [place] moved up to [facility] a year ago with no primary care provider with past medical history of asthma, hepatitis C, polysubstance abuse presented to the emergency room on 02/02/2021 for intractable nausea and vomiting for 5 days. He has been unable to keep any food or liquids down for the same duration. He also complained of epigastric pain and rated the pain about 5/10 in intensity dull aching in nature without any radiation. In the ED lab work showed sodium of 127, potassium of 3, creatinine of 2.4, total bili 2.1. Patient was found to have dehydration, SAMANTHA, and electrolyte imbalance and was admitted to the hospitalist service. Home Medications Scheduled Pantoprazole Sodium (Pantoprazole Sodium) 40 Mg Tablet.dr, 1 TAB PO DAILY Scheduled PRN Albuterol Sulfate (Albuterol Sulfate Hfa) 8.5 Gm Hfa.aer.ad, 2 PUFF INH Q4H PRN for SOB/WHEEZING, (Reported) Allergies Coded Allergies: No Known Allergies (Unverified , 04/14/19) Past Medical History Medical History Asthma, Hepatitis C, Major depressive disorder, Opiod addiction. Substance use related psychotic disorder. Family History Significant Family History: Diabetes (maternal grandmother) Social History Alcohol: Denies Drugs: heroin, IV drug use, other (used to use IV heroin, opiate pills ) A-FIB/CHADSVASC A-FIB History Current/History of A-Fib/PAF?: No Review of Systems Constitutional: Reports: Chills Eyes: Denies: Pain, Vision change ENT: Denies: Head Aches, Ear Pain, Dysphagia Skin: Denies: Rash, Lesions, Breakdown Pulmonary: Denies: Dyspnea, Cough Cardiovascular: Denies: Chest Pain, Palpitations, Orthopnea, Paroxysmal Noc. Dyspnea, Lt Headedness Gastrointestinal: Reports: Nausea, Vomiting, Abdominal Pain; Denies: Diarrhea, Constipation Genitourinary: Denies: Dysuria, Frequency, Incontinence, Retention Hematologic: Denies: Bruising, Bleeding Excessively Neurological: Denies: Numbness, Change in speech, Confusion Psych: Denies: Depression, Memory Issues Physical Examination General Exam: Positive: Alert, Cooperative, No Acute Distress Eye Exam: Positive: PERRLA, Conjunctiva & lids normal, EOMI; Negative: Sclera icteric ENT Exam: Positive: Atraumatic, Mucous membr. moist/pink, Pharynx Normal Neck Exam: Positive: Supple; Negative: JVD, thyromegaly Chest Exam: Positive: Clear to auscultation, Normal air movement Heart Exam: Positive: Rate Normal, Regular Rhythm, Normal S1, Normal S2; Negative: Murmurs, Rubs Abdomen Exam: Positive: Normal bowel sounds, Soft, Tenderness (In the epigastrium), Other (No guarding rigidity or rebound tenderness) Extremity Exam: Negative: Clubbing, Cyanosis, Edema Skin Exam: Positive: Nl turgor and temperature; Negative: Breakdown, Lesion Neuro Exam: Positive: Normal Speech, Strength at 5/5 X4 ext, Normal Tone Psych Exam: Positive: Memory Intact, Oriented x 3 Vital Signs Vital Signs Date Time Temp Pulse Resp B/P (MAP) Pulse Ox O2 Delivery O2 Flow Rate FiO2 02/02/21 13:58 97.9 94 16 129/74 (92) 99 Room Air Laboratory Data Labs 24H Laboratory Tests 2 02/02/21 10:45: Immature Granulocyte % (Auto) 0.4, Neutrophils (%) (Auto) 52.3, Lymphocytes (%) (Auto) 31.1, Monocytes (%) (Auto) 15.7H, Eosinophils (%) (Auto) 0.1, Basophils (%) (Auto) 0.4, Neutrophils # (Auto) 4.8, Lymphocytes # (Auto) 2.8, Monocytes # (Auto) 1.4H, Eosinophils # (Auto) 0.0, Basophils # (Auto) 0.0, Nucleated Red Blood Cells % (auto) 0.0, Anion Gap 12, Glomerular Filtration Rate 38.3L, Calcium Level 10.0, Total Bilirubin 2.1H, Direct Bilirubin 1.0H, Aspartate Amino Transf (AST/SGOT) 38H, Alanine Aminotransferase (ALT/SGPT) 42, Alkaline Phosphatase 96, Total Protein 9.6H, Albumin 4.9, Albumin/Globulin Ratio 1.0, Lipase 211 02/02/21 11:37: Coronavirus (COVID-19)(PCR) NEGATIVE, Influenza Type A (RT-PCR) NEGATIVE, Influenza Type B (RT-PCR) NEGATIVE, Respiratory Syncytial Virus (PCR) NEGATIVE 02/02/21 12:45: Urine Color EMELIA, Urine Appearance HAZY, Urine pH 5.0, Urine Specific [place] 1.023, Urine Protein 1+H, Urine Glucose (Auto)(UA) NEGATIVE, Urine Ketones (Auto) 1+H, Urine Blood NEGATIVE, Urine Nitrite NEGATIVE, Urine Bilirubin NEGATIVE, Urine Urobilinogen 4.0H, Urine Leukocyte Esterase (Auto) NEGATIVE, Uri ne WBC (Auto) 0, Urine RBC (Auto) 0, Urine Hyaline Casts (Auto) 0, Urine Bacteria (Auto) NEGATIVE, Urine Squamous Epithelial Cells 0, Urine Sperm (Auto) CBC/BMP Laboratory Tests 02/02/21 10:45 Assessment/Plan 40-year-old male who is from [place] moved up to [facility] a year ago with no primary care provider with past medical history of asthma, hepatitis C, polysubstance abuse presented to the emergency room on 02/02/2021 for intractable nausea and vomiting for 5 days. He has been unable to keep any food or liquids down for the same duration. He also complained of epigastric pain and rated the pain about 5/10 in intensity dull aching in nature without any radiation. In the ED lab work showed sodium of 127, potassium of 3, creatinine of 2.4, total bili 2.1. Patient was found to have dehydration, SAMANTHA, and electrolyte imbalance and was admitted to the hospitalist service. Nausea and vomiting Acute gastritis/viral gastritis Will give PPI, Zofran, prochlorperazine Clear liquids IV fluids Dehydration and SAMANTHA Due to poor oral intake and vomiting We will continue with IV fluids Hypokalemia and hyponatremia Due to vomiting and dehydration Is being replaced Hyper bilirubinemia history of hepatitis C Abdominal ultrasound just shows some sludge in the gallbladder Untreated We will check hepatitis panel History of polysubstance abuse including IV drug use Last used last week. Reports mainly does opiate pills and if he cannot get pills then does IV heroin. We will check U tox Discussed with Patient . He consented for HIV testing. Plan / VTE VTE Prophylaxis Ordered?: Yes Annia Correia MD Feb 02, 2021 16:17
[2021-02-02 17:08] LABS: HEMOGLOBIN A1c 5.7 %
[2021-02-02] MEDS: ONDANSETRON 4MG/2ML VIAL IV SCH ×2 (17:32→23:23)
[2021-02-02 18:12] LABS: AMPHETAMINES LEVEL URINE NEGATIVE (NEGATIVE); BARBITURATES URINE NEGATIVE (NEGATIVE); BENZODIAZEPINES URINE NEGATIVE (NEGATIVE); CANNABINOIDS URINE NEGATIVE (NEGATIVE); COCAINE METABOLITE URINE NEGATIVE (NEGATIVE); METHADONE URINE NEGATIVE (NEGATIVE); OPIATES URINE POSITIVE (NEGATIVE); PHENCYCLIDINE URINE NEGATIVE (NEGATIVE)
[2021-02-02 22:00] VITALS: BP 114/78
[2021-02-03] MEDS ORDERED: PANTOPRAZOLE 40MG VIAL (C9113 PER 1) IV SCH (03:00)
[2021-02-03] MEDS: ONDANSETRON 4MG/2ML VIAL IV SCH (05:24)
[2021-02-03 06:00] VITALS: BP 104/68
[2021-02-03] MEDS: D5W/0.9% SODIUM CHLORIDE 1,000 ML IV SCH (07:10)
[2021-02-03 08:03] LABS: BASO % 0.6 % (0.0-1.0); EOS # 0.1 10^3/uL (0.0-0.5); EOS % 2.1 % (0.0-3.0); HEMATOCRIT 40.3 % (42.0-52.0); LYMPH # 2.5 10^3/uL (1.5-5.0); MEAN CORPUSCULAR HEMOGLOBIN 29.6 pg (27.0-33.0); MEAN CORPUSCULAR HGB CONC 34.7 g/dl (32.0-36.5); MEAN CORPUSCULAR VOLUME 85.2 fl (80.0-96.0); MONO % 15.8 % (2.0-8.0); NEUTROPHILS # 2.8 10^3/uL (1.5-8.5); PLATELET COUNT, AUTOMATED 264 10^3/uL (150-450); RED BLOOD COUNT 4.73 10^6/uL (4.30-6.10); WHITE BLOOD COUNT 6.5 10^3/uL (4.0-10.0)
[2021-02-03 08:25] LABS: BLOOD UREA NITROGEN 29 MG/DL (7-18); CALCIUM LEVEL 8.5 MG/DL (8.5-10.1); CARBON DIOXIDE LEVEL 33 MEQ/L (21-32); CHLORIDE LEVEL 97 MEQ/L (98-107); CREATININE FOR GFR 1.09 MG/DL (0.70-1.30); GLOMERULAR FILTRATION RATE > 60.0 (>60); GLUCOSE, FASTING 106 MG/DL (70-100); POTASSIUM SERUM 3.1 MEQ/L (3.5-5.1); SODIUM LEVEL 135 MEQ/L (136-145)
[2021-02-03] MEDS ORDERED: POTASSIUM CHLORIDE 10 MEQ SR TABLET PO ONE ×2 (09:00→12:00)
[2021-02-03] MEDS ORDERED: PANT40TA29 PO (09:48)
--- NOTE | 2021-02-03 10:03 | DS.PDOC ---
Discharge Summary General Date of Admission Feb 02, 2021 at 13:10 Date of Discharge 02/03/21 Discharge Summary PROCEDURES PERFORMED DURING STAY: [None]. DISCHARGE DIAGNOSES: Acute gastritis Dehydration SAMANTHA Hypokalemia Hyponatremia Hepatitis C Polysubstance abuse mainly opiates. IV heroin use COMPLICATIONS/CHIEF COMPLAINT: Acute Kidney Injury Nausea Vomiting. HOSPITAL COURSE: 40-year-old male who is from [place] moved up to [facility] a year ago with no primary care provider with past medical history of asthma, hepatitis C, polysubstance abuse presented to the emergency room on 02/02/2021 for intractable nausea and vomiting for 5 days. He has been unable to keep any food or liquids down for the same duration. He also complained of epigastric pain and rated the pain about 5/10 in intensity dull aching in nature without any radiation. In the ED lab work showed sodium of 127, potassium of 3, creatinine of 2.4, total bili 2.1. Patient was found to have dehydration, SAMANTHA, and electrolyte imbalance and was admitted to the hospitalist service. Nausea and vomiting Acute gastritis continue PPI Follow up with PMD. Dehydration and SAMANTHA Due to poor oral intake and vomiting and possibly from drug use last week. now resolved. Hypokalemia and hyponatremia Due to vomiting and dehydration replaced Hyper bilirubinemia history of hepatitis C Abdominal ultrasound just shows some sludge in the gallbladder History of polysubstance abuse including IV drug use mostly uses opiate pills and if he cannot get any then uses IV heroin. Last used about a week ago. Utox positive only for opiates. DISCHARGE MEDICATIONS: Please see below. ALLERGIES: Please see below. PHYSICAL EXAMINATION ON DISCHARGE: VITAL SIGNS: Please see below. General Exam: Positive: Alert, Cooperative, No Acute Distress Eye Exam: Positive: PERRLA, Conjunctiva & lids normal, EOMI; Negative: Sclera icteric ENT Exam: Positive: Atraumatic, Mucous membr. moist/pink, Pharynx Normal Neck Exam: Positive: Supple; Negative: JVD, thyromegaly Chest Exam: Positive: Clear to auscultation, Normal air movement Heart Exam: Positive: Rate Normal, Regular Rhythm, Normal S1, Normal S2; Negative: Murmurs, Rubs Abdomen Exam: Positive: Normal bowel sounds, Soft, Tenderness (In the epigastrium), Other (No guarding rigidity or rebound tenderness) Extremity Exam: Negative: Clubbing, Cyanosis, Edema Skin Exam: Positive: Nl turgor and temperature; Negative: Breakdown, Lesion Neuro Exam: Positive: Normal Speech, Strength at 5/5 X4 ext, Normal Tone Psych Exam: Positive: Memory Intact, Oriented x 3 LABORATORY DATA: Please see below. ACTIVITY: [As tolerated]. DIET: Regular DISCHARGE PLAN: Home DISCHARGE INSTRUCTIONS: PMD in 2 weeks DISCHARGE CONDITION: [Stable]. TIME SPENT ON DISCHARGE: 35 minutes. Vital Signs/I&Os Vital Signs Date Time Temp Pulse Resp B/P (MAP) Pulse Ox O2 Delivery O2 Flow Rate FiO2 02/03/21 06:00 98.0 88 16 104/68 (80) 99 Room Air I&O- Last 24 Hours up to 6 AM 02/03/21 06:00 Intake Total 2760 ml Output Total 1100 ml Balance 1660 ml Laboratory Data Labs 24H Laboratory Tests 2 02/02/21 10:45: Immature Granulocyte % (Auto) 0.4, Neutrophils (%) (Auto) 52.3, Lymphocytes (%) (Auto) 31.1, Monocytes (%) (Auto) 15.7H, Eosinophils (%) (Auto) 0.1, Basophils (%) (Auto) 0.4, Neutrophils # (Auto) 4.8, Lymphocytes # (Auto) 2.8, Monocytes # (Auto) 1.4H, Eosinophils # (Auto) 0.0, Basophils # (Auto) 0.0, Nucleated Red Blood Cells % (auto) 0.0, Anion Gap 12, Glomerular Filtration Rate 38.3L, Estimated Mean Plasma Glucose 117H, Hemoglobin A1c 5.7, Calcium Level 10.0, Total Bilirubin 2.1H, Direct Bilirubin 1.0H, Aspartate Amino Transf (AST/SGOT) 38H, Alanine Aminotransferase (ALT/SGPT) 42, Alkaline Phosphatase 96, Total Protein 9.6H, Albumin 4.9, Albumin/Globulin Ratio 1.0, Lipase 211 02/02/21 11:37: Coronavirus (COVID-19)(PCR) NEGATIVE, Influenza Type A (RT-PCR) NEGATIVE, Influenza Type B (RT-PCR) NEGATIVE, Respiratory Syncytial Virus (PCR) NEGATIVE 02/02/21 12:45: Urine Color EMELIA, Urine Appearance HAZY, Urine pH 5.0, Urine Specific [place] 1.023, Urine Protein 1+H, Urine Glucose (Auto)(UA) NEGATIVE, Urine Ketones (Auto) 1+H, Urine Blood NEGATIVE, Urine Nitrite NEGATIVE, Urine Bilirubin NEGATIVE, Urine Urobilinogen 4.0H, Urine Leukocyte Esterase (Auto) NEGATIVE, Urine WBC (Auto) 0, Urine RBC (Auto) 0, Urine Hyaline Casts (Auto) 0, Urine Bacteria (Auto) NEGATIVE, Urine Squamous Epithelial Cells 0, Urine Sperm (Auto) 02/02/21 17:30: Urine Opiates Screen POSITIVEH, Urine Methadone Screen NEGATIVE, Urine Barbiturates Screen NEGATIVE, Urine Phencyclidine Screen NEGATIVE, Urine Amphetamines Screen NEGATIVE, Urine Benzodiazepines Screen NEGATIVE, Urine C ocaine Metabolite Screen NEGATIVE, Urine Cannabinoids Screen NEGATIVE 02/03/21 06:52: Immature Granulocyte % (Auto) 0.5, Neutrophils (%) (Auto) 43.0, Lymphocytes (%) (Auto) 38.0, Monocytes (%) (Auto) 15.8H, Eosinophils (%) (Auto) 2.1, Basophils (%) (Auto) 0.6, Neutrophils # (Auto) 2.8, Lymphocytes # (Auto) 2.5, Monocytes # (Auto) 1.0H, Eosinophils # (Auto) 0.1, Basophils # (Auto) 0.0, Nucleated Red Blood Cells % (auto) 0.0, Anion Gap 5L, Glomerular Filtration Rate > 60.0, Ca lcium Level 8.5 CBC/BMP Laboratory Tests 02/02/21 10:45 02/03/21 06:52 Discharge Medications Scheduled Pantoprazole Sodium (Pantoprazole Sodium) 40 Mg Tablet.dr, 1 TAB PO DAILY Scheduled PRN Albuterol Sulfate (Albuterol Sulfate Hfa) 8.5 Gm Hfa.aer.ad, 2 PUFF INH Q4H PRN for SOB/WHEEZING, (Reported) Allergies Coded Allergies: No Known Allergies (Unverified , 04/14/19) Annia Correia MD Feb 03, 2021 10:03
[2021-02-03 10:26] LABS: HEPATITIS B CORE ANTIBODY IGM NEGATIVE (NEGATIVE); HEPATITIS B SURFACE ANTIGEN NEGATIVE (NEGATIVE)
[2021-02-03 10:36] LABS: HEPATITIS C VIRUS ABY INDEX > 11.0 INDEX (<0.8)
[2021-02-03 22:34] LABS: ALBUMIN 3.5 GM/DL (3.2-5.2); HIV 1&2 SCREEN CENTAUR NEGATIVE (NEGATIVE)
== END 2021-02-03 11:11 | disposition home or self-care (01) | DRG 241 ==
LOC: M ED 09:36 → M ED INP 13:10 → ENRESERV 13:43 → M MSPAV 14:02
PROVIDERS: ADMIT Internal Medicine Nephrology; ATTEND Internal Medicine Nephrology
DX: K29.00 Acute gastritis without bleeding (principal); N17.9 Acute kidney failure, unspecified; E87.0 Hyperosmolality and hypernatremia; F11.20 Opioid dependence, uncomplicated; E86.0 Dehydration; J45.909 Unspecified asthma, uncomplicated; F32.9 Major depressive disorder, single episode, unspecified; B19.20 Unspecified viral hepatitis C without hepatic coma; Z79.899 Other long term (current) drug therapy; Z20.822 Contact with and (suspected) exposure to COVID-19; E87.6 Hypokalemia; E80.6 Other disorders of bilirubin metabolism

== ENCOUNTER 2021-04-08 12:13 | Emergency (ER) | payer MEDICAID ==
[~2021-04-08] VITALS: Ht 182.9 cm; Wt 59.6 kg
[~2021-04-08 12:13] MED LIST changes: +ALBU8.5H INH; +PANT40TA29 PO
[2021-04-08 12:14] VITALS: BP 131/81
--- OUTSIDE RECORDS SUMMARY | 2021-04-08 12:20 | CCD ---
Author Author [facility] Organization [facility] Address Unknown Phone Unavailable Support Name Relationship Address Phone Mone Parvez Next Of Kin Unknown Unavailable Quita Ballesteros Next Of Kin [address] [place] [address] [place] Next Of Kin [address] [place] [address] Kush BENNETTAlvaro Lopezley Next Of Kin [address] [place] [address] [address] Next Of Kin [address] [place] [address] UE Next Of Kin Unknown Unavailable MONE CRISTINA Next Of Kin . [place], [place] . CHEST, [place] [address] Re-disclosure Warning The records that you are about to access may contain information from federally-assisted alcohol or drug abuse programs. If such information is present, then the following federally mandated warning applies: This information has been disclosed to you from records protected by federal confidentiality rules (42 CFR part 2). The federal rules prohibit you from making any further disclosure of this information unless further disclosure is expressly permitted by the written consent of the person to whom it pertains or as otherwise permitted by 42 CFR part 2. A general authorization for the release of medical or other information is NOT sufficient for this purpose. The Federal rules restrict any use of the information to criminally investigate or prosecute any alcohol or drug abuse patient.The records that you are about to access may contain highly sensitive health information, the redisclosure of which is protected by Article 27-F of the [facility] Public Health law. If you continue you may have access to information: Regarding HIV / AIDS; Provided by facilities licensed or operated by the [facility] Office of Mental Health; or Provided by the [facility] Office for People With Developmental Disabilities. If such information is present, then the following [facility] mandated warning applies: This information has been disclosed to you from confidential records which are protected by state law. State law prohibits you from making any further disclosure of this information without the specific written consent of the person to whom it pertains, or as otherwise permitted by law. Any unauthorized further disclosure in violation of state law may result in a fine or senior care sentence or both. A general authorization for the release of medical or other information is NOT sufficient authorization for further disc losure. Medications No Information Insurance Providers Payer name Policy type / Coverage type Policy ID Covered constitution party ID Covered constitution party's relationship to zhao Policy Zhao Plan Information Medicaid S [id number] S [id number] Managed Care - [facility] Community Plan P [id number] S [id number] Managed Care - [facility] Community Plan P [id number] S [id number] [facility] [id number] SP [id number] [facility] COMMUNITY PLAN MCDO [id number] SP [id number] [facility] [address] [id number] S [id number] [facility] [address] [id number] Unemploye d [id number] [facility] O [id number] S [id number] MEDICAID [id number] SP [id number] Medicaid S [id number] S [id number] Managed Care - [facility] Community Plan P [id number] S [id number] SELF PAY UNAVAILABLE SP [place] [id number] SP [id number] SELF PAY ONLY [id number] SP [id number] [facility] COMMUNITY PLAN MCDO [id number] SP [id number] Problems, Conditions, and Diagnoses No Information Surgeries/Procedures No Information Results ID Date Data Source [id number] 02/02/2021 11:37:00 AM EDT [facility] Name Value Range Interpretation Code Description Data Berenice rce(s) Supporting Document(s) SARS coronavirus 2 RNA [Presence] in Res piratory specimen by JUSTA with probe detection NEGATIVE [facility] This lab was ordered by [facility] a nd reported by [facility]. Procedure Social History No Information Vital Signs ID Date Data Source UNK Name Value Range Interpretation Code Description Data Source(s) Systolic blood pressure 101 mm[Hg] 101 mm[Hg] M HERBER ([facility]) Diastolic blood pressure 66 mm[Hg] 66 mm[Hg] [facility] ([facility]) Heart rate 82 /min 82 /min [facility] ([facility]) Respiratory rate 18 /min 18 /min [facility] ( [facility]) Body temperature 97.3 [degF] 97.3 [degF] [facility] ([facility]) Body weight 143.00 [lb_av] 143.00 [lb_av] MEDEN T ([facility])
[2021-04-08] MEDS ORDERED: OMEPRAZOLE 20 MG CAP PO ONE (14:50)
[2021-04-08] MEDS ORDERED: OMEP40CA4 PO (14:51)
--- OUTSIDE RECORDS SUMMARY | 2021-04-08 15:21 | CCD ---
Author Author [facility] Organization [facility] Address Unknown Phone Unavailable Support Name Relationship Address Phone Mone Parvez Next Of Kin Unknown Unavailable Quita Ballesteros Next Of Kin [address] [place] [address] [place] Next Of Kin [address] [place] [address] Kush BENNETTAlvaro Lopezley Next Of Kin [address] [place] [address] [address] Next Of Kin [address] [place] [address] UE Next Of Kin Unknown Unavailable MONE CRISTINA Next Of Kin . [place], [place] . CHEST, [place] [address] Re-disclosure Warning The records that you are [...] is protected by Article 27-F of the [facility] Public Health law. If you continue you may have access to information: Regarding HIV / AIDS; Provided by facilities licensed or operated by the [facility] Office of Mental Health; or Provided by the [facility] Office for People With Developmental Disabilities. If such information is present, then the following [facility] mandated warning applies: This information has [...] law may result in a fine or [place] health care facility sentence or both. A general authorization for the release of medical or other information is NOT sufficient authorization for further disc losure. Medications No Information Insurance Providers Payer name Policy type / Coverage type Policy ID Covered constitution party ID Covered constitution party's relationship to zhao Policy Zhao Plan Information Medicaid S [id number] S [id number] Managed Care - [facility] Community Plan P [id number] S [id number] Managed Care - [facility] Community Plan P [id number] S [id number] [facility] [id number] SP [id number] [facility] COMMUNITY PLAN MCDO [id number] SP [id number] [facility] [address] [id number] S [id number] [facility] PL [id number] Unemploye d [id number] [facility] O [id number] S [id number] MEDICAID [id number] SP [id number] Medicaid S [id number] S [id number] Managed Care - [facility] Community Plan P [id number] S [id number] SELF PAY UNAVAILABLE SP [place]LE [place] [id number] SP [id number] SELF PAY ONLY [id number] SP [id number] [facility] COMMUNITY PLAN MCDO [id number] SP [id number] Problems, Conditions, and Diagnoses No Information Surgeries/Procedures No Information Results ID Date Data Source [id number] 02/02/2021 11:37:00 AM EDT [facility] Name Value Range Interpretation Code Description Data Berenice rce(s) Supporting Document(s) SARS coronavirus 2 RNA [Presence] in Res piratory specimen by JUSTA with probe detection NEGATIVE [facility] This lab was ordered by [facility] a nd reported by [facility]. Procedure Social History No Information Vital Signs ID Date Data Source UNK Name Value Range Interpretation Code Description Data Source(s) Systolic blood pressure 101 mm[Hg] 101 mm[Hg] M HERBER ([facility]) Diastolic blood pressure 66 mm[Hg] 66 mm[Hg] [facility] ([facility]) Heart rate 82 /min 82 /min [facility] ([facility]) Respiratory rate 18 /min 18 /min [facility] ( [facility]) Body temperature 97.3 [degF] 97.3 [degF] [facility] ([facility]) Body weight 143.00 [lb_av] 143.00 [lb_av] MEDEN T ([facility])
== END 2021-04-08 15:18 | disposition home or self-care (01) ==
LOC: M ED 12:13
DX: Z76.0 Encounter for issue of repeat prescription (principal); K21.9 Gastro-esophageal reflux disease without esophagitis; Z79.899 Other long term (current) drug therapy; Z79.891 Long term (current) use of opiate analgesic; F17.210 Nicotine dependence, cigarettes, uncomplicated

== ENCOUNTER → 2023-11-29 | Outpatient (CLI) | payer MEDICAID ==
[~2023-11-29] MED LIST changes: +CARA1TAB6 PO; +FAMO10TA50 PO; +MIRA3350 PO; +OMEP-173 PO; -OMEP-218 PO; +OMEP40CA4 PO; +ONDA-282; +PANT40TA29; +SUCR1TAB56
== END ==
LOC: M OUTALCOH 09:17
PROVIDERS: ATTEND Psychiatry & Neurology Psychiatry
DX: Z03.89 Encounter for observation for other suspected diseases and conditions ruled out (principal); F17.200 Nicotine dependence, unspecified, uncomplicated

== ENCOUNTER 2025-03-21 18:23 | Emergency (ER) | payer MEDICAID, OTHER ==
[~2025-03-21] VITALS: Ht 182.9 cm; Wt 68.2 kg
[2025-03-22] MEDS ORDERED: AMOX875T2 PO (02:02)
[2025-03-22 02:07] VITALS: BP 115/80; TEMP 97.7; O2SAT 100
[2025-03-22] MEDS: AUGMENTIN 875 MG TAB PO ONE (02:09)
== END 2025-03-22 02:18 | disposition home or self-care (01) ==
LOC: M ED 18:23
DX: L03.012 Cellulitis of left finger (principal); F17.210 Nicotine dependence, cigarettes, uncomplicated; K21.9 Gastro-esophageal reflux disease without esophagitis; F41.9 Anxiety disorder, unspecified; F32.A Depression, unspecified; F19.10 Other psychoactive substance abuse, uncomplicated; Z79.2 Long term (current) use of antibiotics